=== PATIENT | male | born 1985 | race Two or more races ===

== ENCOUNTER 2024-08-13 15:18 | Emergency (ER) | payer OTHER ==
[~2024-08-13] VITALS: Ht 175.3 cm; Wt 88.6 kg
[2024-08-13 15:56] LABS: Chloride 108 mmol/L (98-107); Potassium 4.1 mmol/L (3.5-5.1); Sodium 141 mmol/L (136-145)
[2024-08-13 15:57] LABS: Anion Gap 7 (5-15); Calcium 9.7 mg/dL (8.7-10.4); Carbon Dioxide 26 mmol/L (20-30)
[2024-08-13 15:58] LABS: Basophils # (auto) 0 10 ^3/uL (0-0.2); Basophils % (auto) 0.8 % (0.0-2.0); Eosinophils # (auto) 0.1 10 ^3/uL (0-0.8); Eosinophils % (auto) 1.7 % (0.0-7.0); Hematocrit 44.4 % (41.0-53.0); Hemoglobin 15.3 g/dL (13.5-17.5); Lymphocytes % (auto) 31.8 % (10.0-50.0); Mean Corpuscular Hemoglobin 30.4 pg (28.0-32.0); Mean Corpuscular Hgb Conc. 34.4 g/dL (32.0-36.0); Mean Corpuscular Volume 88.3 fL (80.0-100.0); Monocytes # (auto) 0.6 10 ^3/uL (0-1.3); Monocytes % (auto) 9.2 % (0.0-12.0); Neutrophils # (auto) 3.5 10 ^3/uL (1.6-8.6); Neutrophils % (auto) 56.5 % (37.0-80.0); Nucleated Red Blood Cells % 0.2 %; Platelet Count (auto) 260 10^3/uL (140-450); Red Blood Cells 5.02 10^6/uL (4.5-5.90); Red Cell Distribution Width 13.4 % (11.8-14.3); White Blood Cell 6.1 10^3/uL (4.4-10.8)
[2024-08-13 16:02] LABS: BUN/Creatinine Ratio 17.8 (10.0-20.0); Blood Urea Nitrogen 18 mg/dL (9-23); Glucose 106 mg/dL (74-106)
[2024-08-13 16:11] VITALS: PULSE 63; RESP 20; O2SAT 96
[2024-08-13] MEDS: ASPirin 325 MG TAB PO ONE (16:13)
[2024-08-13] MEDS ORDERED: IBU600T PO (17:42)
[2024-08-13 18:19] VITALS: BP 135/88; PULSE 75; RESP 18; TEMP 97.5; O2SAT 98
== END 2024-08-13 18:20 | disposition home or self-care (01) ==
LOC: ER 15:18
DX: R07.89 Other chest pain (principal); F17.210 Nicotine dependence, cigarettes, uncomplicated; Z98.890 Other specified postprocedural states
CPT/HCPCS: 36415; 80048; 84484; 85025; 93005